=== PATIENT | female | born 1995 | race Asian ===

== ENCOUNTER 2018-02-11 20:19 | Emergency (ER) | payer SELFPAY ==
[~2018-02-11] VITALS: Ht 162.6 cm; Wt 56.4 kg
[2018-02-11 20:25] VITALS: BP 147/86
--- NOTE | 2018-02-11 20:28 | NUR ---
PT RETURNED TO LOBBY WITH SISTER
--- NOTE | 2018-02-11 21:28 | NUR ---
PATIENT PRESENTS TO ED WITH ANXIETY AND SOB. RR CLEAR THROUGHOUT. PT STATES SHE HAS HAD A PANIC ATTACK IN THE PAST BUT NOT IN THE PAST 3 YEARS. DENIES N/V/D; SKIN IS PINK/WARM/DRY; AAOX4 WITH EVEN AND STEADY GAIT; LUNGS CLEAR BL; HR EVEN AND REGULAR; PT DENIES ANY FEVER, CP, SOB, OR COUGH AT THIS TIME; PATIENT STATES PAIN OF 0/10 AT THIS TIME; VSS; PATIENT POSITIONED FOR COMFORT; HOB ELEVATED; BEDRAILS UP X2; BED DOWN. ER MD MADE AWARE OF PT STATUS. CONTINUE TO MONITOR.
[2018-02-11] MEDS ORDERED: LORazepam 1 MG TAB PO ONE (21:50)
[2018-02-11 22:11] VITALS: BP 132/80
--- NOTE | 2018-02-11 22:11 | NUR ---
Patient discharged with v/s stable. Written and verbal after care instructions given and explained. Patient verbalized understanding. Ambulatory with steady gait. All questions addressed prior to discharge. Advised to follow up with PMD.
== END 2018-02-11 22:11 | disposition home or self-care (01) ==
LOC: MED 20:19
DX: F41.0 Panic disorder [episodic paroxysmal anxiety] (principal)
CPT/HCPCS: 99284